=== PATIENT | female | born 1955 | race Caucasian/White ===

== ENCOUNTER → 2025-05-30 10:50 | Outpatient (REF) | payer OTHER, SELFPAY | LOC: HWWDC 10:50 | PROVIDERS: ATTENDING PHYSICIAN Nurse Practitioner | DX: Z12.31 Encounter for screening mammogram for malignant neoplasm of breast (principal) | CPT/HCPCS: 77063; 77067 ==

== ENCOUNTER 2025-08-29 06:26 | Day surgery (SDC) | payer OTHER, SELFPAY | END 2025-08-29 15:12 | disposition home or self-care (01) | LOC: GI 06:26 | PROVIDERS: ATTENDING PHYSICIAN Internal Medicine Gastroenterology | DX: Z12.11 Encounter for screening for malignant neoplasm of colon (principal); Z86.0100 Personal history of colon polyps, unspecified; Z83.719 Family history of colon polyps, unspecified | CPT/HCPCS: G0105 ==